=== PATIENT | female | born 2000 | race Caucasian/White ===

== ENCOUNTER 2019-02-05 09:39 | Emergency (ER) | payer OTHER ==
[2019-02-05 09:46] VITALS: RESP 18
--- NOTE | 2019-02-05 10:35 | ED ---
Female Urogenital HPI - General Chief complaint: Vaginal Bleeding Stated complaint: early preg/vag bleeding & cramping Time Seen by Provider: 02/05/19 10:02 Source: patient Mode of arrival: ambulatory Limitations: no limitations - History of Present Illness Initial comments: Patient is a 18-year-old female presenting to the emergency Department with com plaints of abdominal cramping and spotting 2 days. Patient admits to currently being about 5-6 weeks . Patient's last period was the end of November. Patient states she noticed spotting yesterday evening and has continued. Patient also admits to left-sided abdominal cramping that she rates approximately 3/10. This would be patient's first . Patient does not have an [facility] CASE REPAIRER as of yet. Patient denies any nausea, vomiting, fever, chills. Patient has no previous history of abdominal surgeries. Patient takes no medications. Patient has no other complaints at this time. Upon arrival to ER, vital signs are stable, afebrile. - Related Data Allergies Allergy/AdvReac Type Severity Reaction Status Date / Time Penicillins Allergy Unknown Verified 02/05/19 09:42 Childhood Review of Systems ROS Statement: Those systems with pertinent positive or pertinent negative responses have been documented in the HPI. ROS Other: All systems not noted in ROS Statement are negative. Past Medical History Past Medical History: No Reported History History of Any Multi-Drug Resistant Organisms: None Reported Past Surgical History: No Surgical Hx Reported Past Psychological History: No Psychological Hx Reported Smoking Status: Current every day smoker Past Alcohol Use History: None Reported Past Drug Use History: None Reported General Exam - General Exam Comments Initial Comments: GENERAL: Well-appearing, well-nourished and in no acute distress. HEAD: Atraumatic, normocephalic. EYES: Pupils equal round and reactive to light, extraocular movements intact, sclera anicteric, conjunctiva are normal. ENT: TMs normal, nares patent, oropharynx clear without exudates. Moist mucous me mbranes. NECK: Normal range of motion, supple without lymphadenopathy or JVD. LUNGS: Breath sounds clear to auscultation bilaterally and equal. No wheezes rales or rhonchi. HEART: Regular rate and rhythm without murmurs, rubs or gallops. ABDOMEN: Mild lower abdominal, suprapubic tenderness. Left side greater than right. Soft, normoactive bowel sounds. No guarding, no rebound. No masses appreciated. : Deferred, declined. EXTREMITIES: Normal range of motion, no pitting or edema. No clubbing or cyanosis. NEUROLOGICAL: Cranial nerves II through XII grossly intact. Normal speech, normal gait. PSYCH: Normal mood, normal affect. SKIN: Warm, Dry, normal turgor, no rashes or lesions noted. Limitations: no limitations Course Vital Signs 02/05/19 02/05/19 09:42 12:35 Temperature 98 F 98.0 F Pulse Rate 81 79 Respiratory 18 18 Rate Blood Pressure 138/84 132/85 O2 Sat by Pulse 100 99 Oximetry Medical Decision Making - Medical Decision Making Patient is a 18-year-old female presenting with abdominal cramping and vaginal spotting 2 days. Patient is currently about 5 weeks . This patient's first . Patient denies any fever, chills, nausea, vomiting. Patient's vital signs are stable. On exam patient has mild tenderness suprapubic area. CBC, CMP are within normal limits. HCG Quant is 7300. UA reveals no signs of infection. Ultrasound reveals a single IUP. Small implantation bleed is suspected. No other complications seen. Patient is stable for discharge at t his time. Patient is agreement with this plan of care. Referral to [facility]PA[facility] was given to patient. Return parameters were discussed with the patient she verbalized understanding. Case discussed with Dr. Aguirre. - Lab Data Result diagrams: 02/05/19 10:55 02/05/19 10:55 Lab Results 02/05/19 02/05/19 02/05/19 Range/Units 10:55 10:55 10:55 WBC 10.9 (4.0-11.0) k/uL RBC 4.65 (3.80-5.40) m/uL Hgb 13.7 (11.4-16.0) gm/dL Hct 40.1 (34.0-46.0) % MCV 86.4 (80.0-100.0) fL MCH 29.5 (25.0-35.0) pg MCHC 34.2 (31.0-37.0) g/dL RDW 14.3 (11.5-15.5) % Plt Count 262 (150-450) k/uL Neutrophils % 68 % Lymphocytes % 21 % Monocytes % 5 % Eosinophils % 4 % Basophils % 1 % Neutrophils # 7.4 (1.3-7.7) k/uL Lymphocytes # 2.2 (1.0-4.8) k/uL Monocytes # 0.6 (0-1.0) k/uL Eosinophils # 0.4 (0-0.7) k/uL Basophils # 0.1 (0-0.2) k/uL Sodium (137-145) mmol/L Potassium (3.5-5.1) mmol/L Chloride (98-107) mmol/L Carbon Dioxide (22-30) mmol/L Anion Gap mmol/L BUN (7-17) mg/dL Creatinine (0.52-1.04) mg/dL Est GFR (CKD-EPI)AfAm (>60 ml/min/1.73 sqM) Est GFR (CKD-EPI)NonAf (>60 ml/min/1.73 sqM) Glucose (74-99) mg/dL Calcium (8.4-10.2) mg/dL Total Bilirubin (0.2-1.3) mg/dL AST (14-36) U/L ALT (9-52) U/L Alkaline Phosphatase (38-126) U/L Total Protein (6.3-8.2) g/dL Albumin (3.5-5.0) g/dL HCG, Quant mIU/mL Urine Color Yellow Urine Appearance Cloudy H (Clear) Urine pH 6.5 (5.0-8.0) Ur Specific [place] 1.020 (1.001-1.035) Urine Protein Negative (Negative) Urine Glucose (UA) Negative (Negative) Urine Ketones Negative (Negative) Urine Blood Moderate H (Negative) Urine Nitrite Negative (Negative) Urine Bilirubin Negative (Negative) Urine Urobilinogen <2.0 (<2.0) mg/dL Ur Leukocyte Esterase Moderate H (Negative) Urine RBC 1 (0-5) /hpf Urine WBC 3 (0-5) /hpf Ur Squamous Epith Cells 14 H (0-4) /hpf Urine Bacteria Rare H (None) /hpf Urine Mucus Rare H (None) /hpf Urine Sperm Rare (None) /hpf Blood Type A Positive Blood Type Recheck No Previous Record Bld Type Recheck Status [facility] ONLY 02/05/19 Range/Units 10:55 WBC (4.0-11.0) k/uL RBC (3.80-5.40) m/uL Hgb (11.4-16.0) gm/dL Hct (34.0-46.0) % MCV (80.0-100.0) fL MCH (25.0-35.0) pg MCHC (31.0-37.0) g/dL RDW (11.5-15.5) % Plt Count (150-450) k/uL Neutrophils % % Lymphocytes % % Monocytes % % Eosinophils % % Basophils % % Neutrophils # (1.3-7.7) k/uL Lymphocytes # (1.0-4.8) k/uL Monocytes # (0-1.0) k/uL Eosinophils # (0-0.7) k/uL Basophils # (0-0.2) k/uL Sodium 138 (137-145) mmol/L Potassium 4.2 (3.5-5.1) mmol/L Chloride 106 (98-107) mmol/L Carbon Dioxide 25 (22-30) mmol/L Anion Gap 7 mmol/L BUN 11 (7-17) mg/dL Creatinine 0.58 (0.52-1.04) mg/dL Est GFR (CKD-EPI)AfAm >90 (>60 ml/min/1.73 sqM) Est GFR (CKD-EPI)NonAf >90 (>60 ml/min/1.73 sqM) Glucose 90 (74-99) mg/dL Calcium 9.1 (8.4-10.2) mg/dL Total Bilirubin 0.5 (0.2-1.3) mg/dL AST 18 (14-36) U/L ALT 20 (9-52) U/L Alkaline Phosphatase 45 (38-126) U/L Total Protein 6.7 (6.3-8.2) g/dL Albumin 4.0 (3.5-5.0) g/dL HCG, Quant 7367.5 mIU/mL Urine Color Urine Appearance (Clear) Urine pH (5.0-8.0) Ur Specific [place] (1.001-1.035) Urine Protein (Negative) Urine Glucose (UA) (Negative) Urine Ketones (Negative) Urine Blood (Negative) Urine Nitrite (Negative) Urine Bilirubin (Negative) Urine Urobilinogen (<2.0) mg/dL Ur Leukocyte Esterase (Negative) Urine RBC (0-5) /hpf Urine WBC (0-5) /hpf Ur Squamous Epith Cells (0-4) /hpf Urine Bacteria (None) /hpf Urine Mucus (None) /hpf Urine Sperm (None) /hpf Blood Type Blood Type Recheck Bld Type Recheck Status Disposition Clinical Impression: Vaginal bleeding, and not yet delivered in first trimester Disposition: HOME SELF-CARE Condition: Stable Instructions (If sedation given, give patient instructions): Non-Threatening First Trimester Vaginal Bleed (ED) Additional Instructions: Please return to the Emergency Department if symptoms worsen or any other concerns. Follow-up with [facility]PAIR[facility]. Is patient prescribed a controlled substance at d/c from ED?: No Referrals: Sachin Morel MD [Primary Care Provider] - 1-2 days Mely López DO [Doctor of Osteopathic Medicine] - 1-2 days
[2019-02-05 11:15] LABS: Basophils # (A) 0.1 k/uL (0-0.2); Basophils % (A) 1 %; Eosinophils # (A) 0.4 k/uL (0-0.7); Eosinophils % (A) 4 %; HCT 40.1 % (34.0-46.0); HGB 13.7 gm/dL (11.4-16.0); Lymphocytes # (A) 2.2 k/uL (1.0-4.8); Lymphocytes % (A) 21 %; MCH 29.5 pg (25.0-35.0); MCHC 34.2 g/dL (31.0-37.0); MCV 86.4 fL (80.0-100.0); Mean Platelet Volume 7.3; Monocytes # (A) 0.6 k/uL (0-1.0); Monocytes % (A) 5 %; Neutrophils # (A) 7.4 k/uL (1.3-7.7); Neutrophils % (A) 68 %; Platelet Count 262 k/uL (150-450); RBC 4.65 m/uL (3.80-5.40); RDW 14.3 % (11.5-15.5); WBC 10.9 k/uL (4.0-11.0)
[2019-02-05 11:20] LABS: Appearance,Urine Cloudy (Clear); Bacteria,Urine Rare /hpf; Bilirubin,Urine Negative (Negative); Blood,Urine Moderate (Negative); Color,Urine Yellow; Glucose,Urine (UA) Negative (Negative); Ketones,Urine Negative (Negative); Leukocyte Esterase,Urine Moderate (Negative); Mucus,Urine Rare /hpf; Nitrite,Urine Negative (Negative); PH, Urine 6.5 (5.0-8.0); Protein,Urine Negative (Negative); RBC,Urine 1 /hpf (0-5); Sperm,Urine Rare /hpf; Squamous Epithelial Cell,Urine 14 /hpf (0-4); Urobilinogen,Urine <2.0 mg/dL (<2.0)
[2019-02-05 11:28] LABS: ALT 20 U/L (9-52); AST 18 U/L (14-36); African American GFR (CKD) >90 (>60 ml/min/1.73 sqM); Alkaline Phosphatase 45 U/L (38-126); Anion Gap 7 mmol/L; Blood Urea Nitrogen 11 mg/dL (7-17); Calcium 9.1 mg/dL (8.4-10.2); Carbon Dioxide 25 mmol/L (22-30); Chloride 106 mmol/L (98-107); Glucose 90 mg/dL (74-99); Potassium 4.2 mmol/L (3.5-5.1); Sodium 138 mmol/L (137-145); Total Bilirubin 0.5 mg/dL (0.2-1.3); Total Protein 6.7 g/dL (6.3-8.2)
[2019-02-05 11:42] LABS: HCG,Quantitative Serum 7367.5 mIU/mL
--- NOTE | 2019-02-05 12:20 | US ---
EXAMINATION TYPE: Transabdominal DATE OF EXAM: 02/05/2019 11:44 AM COMPARISON: NONE CLINICAL HISTORY: Pain, bleeding. Spotting EXAM PERFORMED: Transvaginal (TV) and Transabdominal (TA) EXAM MEASUREMENTS: GESTATIONAL AGE / DATING Physician Established: Not yet established ( Dates by LMP: (6 weeks/0 days) EDC: 10/01/2019 Dates by First Scan: No previous this is first scan ) Dates by Current Scan for: (5 weeks/6 days) EDC: 10/02/2019 MATERNAL ANATOMY Uterus: 7.5 x 5.1 x 5.4 cm Right Ovary: 2.6 x 1.7 x 1.7 cm Left Ovary: Obscured by bowel gas. Post CDS / Adnexa: wnl Presence of free fluid: no Presence of corpus luteal cyst: no Presence of subchorionic bleed: Very small implantation bleed is suspected as slight hypoechogenicity surrounds less than 25% of the diameter of the gestational sac. GESTATION / SURVEY CRL: 0.28 cm (5 weeks/6 days) MSD: ( weeks/ days) Yolk Sac (normal less than 6mm): 0.13cm Heart Rate: 151 bpm Rhythm: Normal IUP: Live IUP Beta HcG (if available): Not available at this time IMPRESSION: Single live intrauterine with a sonographic age of 5 weeks and 6 days and estimated date of delivery of 10/02/2019, concordant with menstrual age. Small implantation bleed is suspected.
[2019-02-05 12:35] VITALS: BP 132/85; PULSE 79; TEMP 98
== END 2019-02-05 12:35 | disposition home or self-care (01) ==
LOC: EC 09:39
DX: O20.9 Hemorrhage in early pregnancy, unspecified (principal); O99.331 Smoking (tobacco) complicating pregnancy, first trimester; F17.200 Nicotine dependence, unspecified, uncomplicated; Z88.0 Allergy status to penicillin; Z3A.01 Less than 8 weeks gestation of pregnancy
CPT/HCPCS: 36415; 76801; 76817; 80053; 81001; 84702; 85025; 86900; 86901; 99284

== ENCOUNTER → 2021-08-16 | Outpatient (CLI) | payer OTHER ==
--- NOTE | 2021-08-16 12:05 | US ---
EXAMINATION TYPE: US OB >= 14 wk fetus DATE OF EXAM: 08/16/2021 COMPARISON: None CLINICAL HISTORY: Z36.87 uncertain l and p TECHNIQUE: Transabdominal (TA) GESTATIONAL AGE / DATING Physician Established: Not yet established Dates by LMP: LMP unknown Dates by First Scan: No previous this is first scan Dates by Current Scan: (16 weeks/4 days) EDC: 01-27-22 SURVEY IUP: Single PLACENTA: Posterior PREVIA: Low Lying VLAD: 10.4 cm CERVICAL LENGTH (transabdominal: norm > 3.0cm): 3.2 cm BIOMETRY PRESENTATION: LIE: BPD: 3.4 cm 16 weeks / 4 days HC: 13.1 cm 16 weeks / 5 days AC: 10.2 cm 16 weeks / 1 days FL: 2.1 cm 16 weeks / 3 days ESTIMATED WEIGHT IN GRAMS: 152 grams ESTIMATED WEIGHT IN LBS/OZ: 0 lbs. 5 oz. WEIGHT PERCENTAGE BASED ON ESTABLISHED DATES: 1st ultrasound, unknown LMP HC/AC: 1.3 FL/AC: 20.9 HEART RATE: 140 bpm IMPRESSION: Single viable intrauterine .
== END | disposition home or self-care (01) ==
LOC: RADUSWWP 10:48
PROVIDERS: ATTEND Obstetrics & Gynecology
DX: Z36.87 Encounter for antenatal screening for uncertain dates (principal); Z3A.16 16 weeks gestation of pregnancy
CPT/HCPCS: 76805

== ENCOUNTER 2022-01-29 20:22 | Inpatient (IN) | payer OTHER ==
[2022-01-29] MEDS ORDERED: METHYLERGONOVINE 0.2 MG/ML 1 ML AMP IM PRN (21:18)
[2022-01-29] MEDS ORDERED: OXYTOCIN 10 UNIT/ML 1 ML VIAL IM PRN (21:18)
[2022-01-29] MEDS ORDERED: TERBUTALINE 1 MG/ML VIAL SQ PRN (21:18)
[2022-01-29] MEDS ORDERED: LIDOCAINE 0.5% (PF) 5 MG/ML (50 ML SDV) SQ PRN (21:18)
[2022-01-29] MEDS ORDERED: CARBOPROST TROMETHAMINE 250 MCG/ML 1 ML AMP IM PRN (21:18)
[2022-01-29] MEDS ORDERED: CLINDAMYCIN 900 MG in DEXTROSE 5% IN WATER 50 ML IVPB STA ×2 (21:23)
[2022-01-29] MEDS ORDERED: OXYTOCIN 30 UNITS/500 ML NS 30 UNIT in SALINE 1 500ML.BAG IV SCH (21:30)
[2022-01-29] MEDS: LACTATED RINGERS 1,000 ML IV SCH (21:31)
[2022-01-29 21:35] LABS: Basophils % (A) 0 %; Eosinophils # (A) 0.2 k/uL (0-0.7); Eosinophils % (A) 1 %; HGB 13.3 gm/dL (11.4-16.0); Lymphocytes # (A) 2.4 k/uL (1.0-4.8); Lymphocytes % (A) 16 %; MCH 28.6 pg (25.0-35.0); MCHC 33.2 g/dL (31.0-37.0); MCV 86.2 fL (80.0-100.0); Mean Platelet Volume 8.6; Monocytes # (A) 0.8 k/uL (0-1.0); Monocytes % (A) 6 %; Neutrophils # (A) 11.1 k/uL (1.3-7.7); Neutrophils % (A) 76 %; Platelet Count 258 k/uL (150-450); RBC 4.64 m/uL (3.80-5.40); RDW 13.2 % (11.5-15.5); WBC 14.5 k/uL (3.8-10.6)
[2022-01-29] MEDS: BUTORPHANOL 1 MG/ML 1 ML VIAL IV PRN (23:31)
[2022-01-30] MEDS: BUTORPHANOL 1 MG/ML 1 ML VIAL IV PRN (03:30)
[2022-01-30] MEDS ORDERED: CLINDAMYCIN 900 MG in DEXTROSE 5% IN WATER 50 ML IVPB SCH ×2 (05:30)
[2022-01-30] MEDS ORDERED: BUPIVACAINE (PF) 0.25% 30 ML VIAL ONE (06:18)
[2022-01-30] MEDS ORDERED: SODIUM CHLORIDE 0.9% 100 ML BAG ONE (06:18)
[2022-01-30] MEDS ORDERED: fentaNYL (PF) 50 MCG/ML 5 ML AMP ONE (06:18)
[2022-01-30] MEDS: LACTATED RINGERS 1,000 ML IV SCH ×2 (06:44→18:13)
--- NOTE | 2022-01-30 07:56 | P.HPOB ---
History of Present Illness H&P Date: 01/30/22 Chief Complaint: Spontaneous amniorrhexis last night, early labor This is a 21-year-old female 2 para 0010 EDC 01/28/2022 at 40 and one sevenths weeks' gestation who presented last night with spontaneous amniorrhexis at home, clear fluid. She labored through the night, epidural was placed this morning. Oxytocin is currently instituted and being titrated. Past medical history is significant for morbid maternal obesity. Past surgical history wisdom teeth extracted. Current medications vitamins daily, baby aspirin daily. ALLERGIES include penicillin to which she reports a rash and hives. Family history significant for hypertension, breast cancer, brain tumor, cardiac defect. Social history patient is single, patient is employed, she denies alcohol tobacco or drug use. history significant for blood type A positive, rubella status immune. VDRL testing, urine culture, hepatitis B surface antigen, HIV testing, gonorrhea and chlamydia cultures all negative. One-hour Glucola 111. Group B strep cultures positive. On exam patient is 5 foot 6 inches, 311 pounds, blood pressure 138/85. Vital signs are otherwise stable and she is afebrile. The general physical exam is within normal limits. The cervix is 3-4 cm dilated, 60-70% effaced, soft, posterior, vertex. Artificial amniorrhexis has been confirmed on admission. heart rate is consistent with reactive NST. Impression: 40 and one sevenths week intrauterine , active spontaneous labor. Morbid maternal obesity. Positive group B strep cultures. Plan: Rocephin has been given due to penicillin ALLERGY and clindamycin resistance of the organism. Oxytocin has been started and epidural is in place, patient is comfortable. Continue close maternal and surveillance. Anticipate normal spontaneous vaginal delivery. Review of Systems Constitutional: Reports as per HPI Past Medical History Past Medical History: No Reported History History of Any Multi-Drug Resistant Organisms: None Reported Past Surgical History: No Surgical Hx Reported Past Psychological History: No Psychological Hx Reported Smoking Status: Never smoker Past Alcohol Use History: None Reported Past Drug Use History: None Reported Medications and Allergies Home Medications Medication Instructions Recorded Confirmed Type Aspirin [Adult Low Dose Aspirin EC] 1 tab PO DAILY 01/29/22 01/29/22 History Vit No.179/Iron/Folic 1 tab PO DAILY 01/29/22 01/29/22 History [ Tablet] Allergies Allergy/AdvReac Type Severity Reaction Status Date / Time Penicillins Allergy Unknown Verified 02/05/19 09:42 Childhood Exam Vital Signs Temp Pulse Resp BP Pulse Ox 01/29/22 21:30 97.8 F 80 17 131/91 01/29/22 20:40 97.7 F 103 H 17 138/85 95 Intake and Output 01/29/22 01/30/22 01/30/22 22:59 06:59 14:59 Other: # Voids 1 1 Weight 141.067 kg See dictation under HPI please Results Result Diagrams: 01/29/22 21:19 Abnormal Lab Results - Last 24 Hours (Table) 01/29/22 Range/Units 21:19 WBC 14.5 H (3.8-10.6) k/uL Neutrophils # 11.1 H (1.3-7.7) k/uL Assessment and Plan Assessment: 40 and one sevenths weeks intrauterine , here in early active labor. Rupee strep cultures positive, antibiotics. Epidural placed. Patient comfortable. Oxytocin titrating. Plan: Continue oxytocin per protocol. Continue close maternal and surveillance. Optimistic clean anticipating normal spontaneous vaginal delivery. Time with Patient: Less than 30
[2022-01-30] MEDS ORDERED: HYDROCORTISONE 2.5% RECTAL CREAM 30 GM TUBE RECTAL PRN (18:05)
[2022-01-30] MEDS ORDERED: ZOLPIDEM 5 MG TAB PO PRN (18:05)
[2022-01-30] MEDS ORDERED: BENZOCAINE/MENTHOL SPRAY 1 GM/SPRAY AEROSOL TOPICAL PRN (18:05)
[2022-01-30] MEDS ORDERED: LANOLIN CREAM 5 GM TUBE TOPICAL PRN (18:05)
[2022-01-30] MEDS ORDERED: diphenhydrAMINE ELIXIR 25 MG/10 ML CUP PO PRN (18:05)
[2022-01-30] MEDS ORDERED: ACETAMINOPHEN TAB 325 MG TAB PO PRN (18:05)
[2022-01-30] MEDS ORDERED: SIMETHICONE 80 MG CHEWABLE PO PRN (18:05)
[2022-01-30] MEDS ORDERED: diphenhydrAMINE 50 MG/ML 1 ML VIAL IVP PRN ×2 (18:05)
[2022-01-30] MEDS ORDERED: diphenhydrAMINE 50 MG CAP PO PRN (18:05)
[2022-01-30] MEDS ORDERED: diphenhydrAMINE 25 MG CAP PO PRN (18:05)
--- NOTE | 2022-01-30 18:05 | P.PROBDLV ---
Vaginal Delivery Note - . Vaginal Delivery Note: This is a 21-year-old 2 para 0010 now at 40-2/7 weeks' gestation who presented last night with spontaneous amniorrhexis, clear fluid. is remarkable for blood type A+, group B strep cultures positive, rubella status immune. Please see my dictated history and physical for details. Oxytocin was started at 0500 hrs. Active labor commenced. Epidural was placed per her request after several doses of Stadol were administered. In addition, Rocephin was given for group B strep status. Patient progressed through the first stage of labor and was judged to be completely dilated at 1710 hrs. Perineal body was prepped and draped in usual sterile fashion. With a very exaggerated Caren maneuver the 's head delivered in the occiput anterior position and restituted accordingly. There was a tight nuchal cord 1. The left or anterior shoulder was delivered from underneath the pubic symphysis at which time the somewhat explosively delivered. The umbilical cord was noted to be sheared approximately 3 cm from the end. Her abdominal wall. Cord clamp was placed. weighed 8 pounds 7.8 ounces or 3850 g. Placenta delivered spontaneously, it was inspected and noted to be intact with trivascular cord at 1722 hrs. Careful inspection then of the cervix, vagina, perineum, periurethral, and. Rectal areas revealed a small first-degree periclitoral laceration as well as a first-degree perineal laceration. Both were repaired in the usual fashion using 3-0 repeat with excellent reapproximation. Total estimated blood loss 300 mL's. Methergine was given as the uterus was somewhat boggy, with immediate results. Uterus is firm and at the umbilicus upon completion of delivery. Infant's scores were 8 and 9 at one and 5 minutes respectively. He was briefly taken to the nursery for observation. Patient is requesting circumcision for her son.
[2022-01-30 20:12] VITALS: RESP 16
[2022-01-31] MEDS: IBUPROFEN 600 MG TAB PO SCH ×4 (04:08→14:41)
[2022-01-31] MEDS: SENNOSIDES-DOCUSATE SODIUM 1 EACH TAB PO SCH ×2 (04:09→08:50)
[2022-01-31] MEDS: LACTATED RINGERS 1,000 ML IV SCH ×2 (04:09→05:36)
--- NOTE | 2022-01-31 08:34 | P.DS ---
Providers Date of admission: 01/29/22 20:51 Expected date of discharge: 01/31/22 Attending physician: Raven Key Primary care physician: Stated None Hospital Course: This is a 21-year-old female 2 para 0010 EDC 01/28/2022 at 40-2/7 weeks' gestation who presented with spontaneous amniorrhexis at home, clear fluid. is remarkable for blood type A positive, rubella status immune. [place] strep cultures positive. Morbid maternal obesity. Please see my dictated history and physical for details. The following morning oxytocin was started. Please note that antibiotics were given. Patient had a long course of labor but ultimately delivered a liveborn male infant with scores of 8 and 9 at one and 5 minutes respectively. There was a small first-degree perineal laceration as well as a periclitoral laceration, easily repaired. Estimated blood loss 300 mL's. Infant weighed 8 pounds 7.8 ounces or 3850 g. Please see my dictated delivery note for details. The spine the patient is doing well. She is voiding, inability, passing flatus without difficulty. Vital signs are stable and she is afebrile. Fundus is firm and in the midline, symmetric and 18 week size. Extremities are negative for edema. infant is doing well, circumcision has been performed. Patient is judged to be in very good condition for discharge home. She will follow-up with me in the office in 6 weeks. I have reminded her no intercourse, tampons or douching. She'll use [id number] Advil or Aleve, or Motrin as needed for pain. She will call with any fevers shakes or chills, foul smelling or copious lochia, with the passage of large blood clots, with any pain not alleviated by [id number] products, or indeed with any concerns. We have briefly contemplated options for contraception and we will discuss this further in the office. Assessment: Doing well first day Patient Condition at Discharge: Good Plan - Discharge Summary New Discharge Prescriptions: No Action Vit No.179/Iron/Folic [ Tablet] 1 tab PO DAILY Aspirin [Adult Low Dose Aspirin EC] 1 tab PO DAILY Discharge Medication List Aspirin [Adult Low Dose Aspirin EC] 1 tab PO DAILY 01/29/22 [History] Vit No.179/Iron/Folic [ Tablet] 1 tab PO DAILY 01/29/22 [History] Follow up Appointment(s)/Referral(s): Raven Key MD [STAFF PHYSICIAN] - 6 Weeks Discharge Disposition: HOME SELF-CARE
[2022-01-31 17:52] VITALS: BP 135/88; PULSE 101; TEMP 96.7
== END 2022-01-31 18:00 | disposition home or self-care (01) | DRG 807 ==
LOC: FBPOP 20:22 → 4FBP 20:51
PROVIDERS: ADMIT Obstetrics & Gynecology; ATTEND Obstetrics & Gynecology
PROC: 10E0XZZ Delivery of Products of Conception, External Approach (ICD-10-PCS; principal; 2022-01-30)
PROC: 0HQ9XZZ Repair Perineum Skin, External Approach (ICD-10-PCS; 2022-01-30)
PROC: 10907ZC Drainage of Amniotic Fluid, Therapeutic from Products of Conception, Via Natural or Artificial Opening (ICD-10-PCS; 2022-01-30)
PROC: 4A0HXCZ Measurement of Products of Conception, Cardiac Rate, External Approach (ICD-10-PCS; 2022-01-30)
PROC: 0UQMXZZ Repair Vulva, External Approach (ICD-10-PCS; 2022-01-30)
PROC: 3E033VJ Introduction of Other Hormone into Peripheral Vein, Percutaneous Approach (ICD-10-PCS; 2022-01-30)
DX: O99.824 Streptococcus B carrier state complicating childbirth (principal); Z37.0 Single live birth; O69.1XX0 Labor and delivery complicated by cord around neck, with compression, not applicable or unspecified; O70.0 First degree perineal laceration during delivery; O71.82 Other specified trauma to perineum and vulva; E66.01 Morbid (severe) obesity due to excess calories; O48.0 Post-term pregnancy; O99.214 Obesity complicating childbirth; Z88.0 Allergy status to penicillin; Z3A.40 40 weeks gestation of pregnancy; Z79.82 Long term (current) use of aspirin
CPT/HCPCS: 85025; 86850; 86900; 86901; 99213

== ENCOUNTER 2022-11-17 15:57 | Emergency (ER) | payer OTHER ==
[2022-11-17 16:11] VITALS: BP 141/69; PULSE 88; RESP 18; TEMP 98
[2022-11-17] MEDS ORDERED: LIDOCAINE 2%-EPI 1:100,000 20 ML VIAL SQ ONE (16:20)
[2022-11-17] MEDS ORDERED: BACITRACIN OINT 1 EACH PACKET TOPICAL ONE (16:30)
[2022-11-17] MEDS ORDERED: CEPHALEXIN 500 MG CAP PO STA (16:31)
[2022-11-17] MEDS ORDERED: CEPHALEXIN 500MG STARTER PACK 4 CAP BTL PO STA (16:31)
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
== END 2022-11-17 16:47 | disposition home or self-care (01) ==
LOC: EC 15:57
DX: S71.111A Laceration without foreign body, right thigh, initial encounter (principal); Z88.0 Allergy status to penicillin; V86.96XA Unspecified occupant of dirt bike or motor/cross bike injured in nontraffic accident, initial encounter
CPT/HCPCS: 12004; 99282

== ENCOUNTER 2023-01-04 10:37 | Emergency (ER) | payer OTHER ==
[2023-01-04 10:46] VITALS: BP 98/67; PULSE 82; RESP 16; TEMP 98.9
--- NOTE | 2023-01-04 11:17 | ED ---
General Adult HPI - General Chief complaint: Recheck/Abnormal Lab/Rx Stated complaint: Needs drug test Time Seen by Provider: 01/04/23 11:11 Source: patient, RN notes reviewed Mode of arrival: ambulatory Limitations: no limitations - History of Present Illness Initial comments: 22-year-old female presents emergency Department for drug screen. She denies any physical issues at this time. She would like to be drug tested today for accusations of drug abuse. She reports no significant past medical history. - Related Data Home Medications Medication Instructions Recorded Confirmed Aspirin [Adult Low Dose Aspirin EC] 1 tab PO DAILY 01/29/22 01/29/22 Vit No.179/Iron/Folic 1 tab PO DAILY 01/29/22 01/29/22 [ Tablet] Previous Rx's Medication Instructions Recorded Cephalexin [Keflex] 500 mg PO Q8HR 5 Days #14 cap 11/17/22 Allergies Allergy/AdvReac Type Severity Reaction Status Date / Time Penicillins Allergy Unknown Verified 01/04/23 10:46 Childhood Review of Systems ROS Statement: Those systems with pertinent positive or pertinent negative responses have been documented in the HPI. ROS Other: All systems not noted in ROS Statement are negative. Past Medical History Past Medical History: No Reported History History of Any Multi-Drug Resistant Organisms: None Reported Past Surgical History: No Surgical Hx Reported Past Psychological History: No Psychological Hx Reported Smoking Status: Never smoker Past Alcohol Use History: None Reported Past Drug Use History: None Reported General Exam Limitations: no limitations General appearance: alert, in no apparent distress Head exam: Present: atraumatic, normocephalic, normal inspection Eye exam: Present: normal appearance. Absent: scleral icterus, conjunctival injection, periorbital swelling ENT exam: Present: normal exam, mucous membranes moist Neck exam: Present: normal inspection. Absent: tenderness, meningismus, lymphadenopathy Respiratory exam: Present: normal lung sounds bilaterally. Absent: respiratory distress, wheezes, rales, rhonchi, stridor Cardiovascular Exam: Present: regular rate, normal rhythm, normal heart sounds. Absent: systolic murmur, diastolic murmur, rubs, gallop, clicks Extremities exam: Present: normal inspection, full ROM, normal capillary refill. Absent: tenderness, pedal edema, joint swelling, calf tenderness Back exam: Present: normal inspection Neurological exam: Present: alert, oriented X3 Psychiatric exam: Present: normal affect, normal mood Skin exam: Present: warm, dry, intact, normal color. Absent: rash Course Vital Signs 01/04/23 10:43 Temperature 98.9 F Pulse Rate 82 Respiratory 16 Rate Blood Pressure 98/67 O2 Sat by Pulse 99 Oximetry Medical Decision Making - Medical Decision Making Was pt. sent in by a medical professional or institution (TATE Gonzalez, GRAPHIC ARTIST, urgent care, hospital, or residential...) When possible be specific @ -No Did you speak to anyone other than the patient for history (EMS, parent, family, police, friend...)? What history was obtained from this source @ -No Did you review nursing and triage notes (agree or disagree)? Why? @ -I reviewed and agree with nursing and triage notes Were old charts reviewed (outside hosp., previous admission, EMS record, old EKG, old radiological studies, urgent care reports/EKG's, residential records)? Report findings @ -No old charts were reviewed Differential Diagnosis (chest pain, altered mental status, abdominal pain women, abdominal pain men, vaginal bleeding, weakness, fever, dyspnea, syncope, headache, dizziness, GI bleed, back pain, seizure, CVA, palpatations, mental health, musculoskeletal)? @ -not applicable EKG interpreted by me (3pts min.). @ -none X-rays interpreted by me (1pt min.). @ -None done CT interpreted by me (1pt min.). @ -None done U/S interpreted by me (1pt. min.). @ -None done What testing was considered but not performed or refused? (CT, X-rays, U/S, labs)? Why? @ -None What meds were considered but not given or refused? Why? @ -None Did you discuss the management of the patient with other professionals (professionals i.e. TATE Gonzalez, GRAPHIC ARTIST, lab, RT, psych nurse, geriatric social worker, immigration investigator, teacher, bomb squad officer, behavioral health case manager)? Give summary @ -No Was smoking cessation discussed for >3mins.? @ -No Was critical care preformed (if so, how long)? @ -No Were there social determinants of health that impacted care today? How? (Homelessness, low income, unemployed, alcoholism, drug addiction, transportation, low edu. Level, literacy, decrease access to med. care, nursing home, rehab)? @ -No Was there de-escalation of care discussed even if they declined (Discuss DNR or withdrawal of care, Hospice)? DNR status @ -No What co-morbidities impacted this encounter? (DM, HTN, Smoking, COPD, CAD, Cancer, CVA, ARF, Chemo, Hep., AIDS, mental health diagnosis, sleep apnea, morbid obesity)? @ -None Was patient admitted / discharged? Hospital course, mention meds given and route, prescriptions, significant lab abnormalities, going to OR and other pertinent info. @ -Discharge. Patient presented to emergency department for drug screening. Urine drug screen performed and patient advised on results. Patient discharged in stable condition. Undiagnosed new problem with uncertain prognosis? @ -No Drug Therapy requiring intensive monitoring for toxicity (Heparin, Nitro, Insulin, Cardizem)? @ -No Were any procedures done? @ -No Diagnosis/symptom? @ -Encounter for drug screening Acute, or Chronic, or Acute on Chronic? @ -acute Uncomplicated (without systemic symptoms) or Complicated (systemic symptoms)? @ -uncomplicated Side effects of treatment? @ -No Exacerbation, Progression, or Severe Exacerbation? @ -No Poses a threat to life or bodily function? How? (Chest pain, [place], [place], pneumonia, PE, COPD, DKA, ARF, appy, cholecystitis, CVA, Diverticulitis, Homicidal, Suicidal, threat to staff... and all critical care pts) @ -No - Lab Data Lab Results 01/04/23 Range/Units 10:48 Urine Opiates Screen Not Detected (NotDetected) Ur Oxycodone Screen Not Detected (NotDetected) Urine Methadone Screen Not Detected (NotDetected) Ur Propoxyphene Screen Not Detected (NotDetected) Ur Barbiturates Screen Not Detected (NotDetected) U Tricyclic Antidepress Not Detected (NotDetected) Ur Phencyclidine Scrn Not Detected (NotDetected) Ur Amphetamines Screen Not Detected (NotDetected) U Methamphetamines Scrn Not Detected (NotDetected) U Benzodiazepines Scrn Not Detected (NotDetected) Urine Cocaine Screen Not Detected (NotDetected) U Marijuana (THC) Screen Not Detected (NotDetected) Disposition Clinical Impression: Encounter for drug screening Disposition: HOME SELF-CARE Condition: Stable Is patient prescribed a controlled substance at d/c from ED?: No Referrals: Amy Nguyễn NPC [REFERRING] - 1-2 days Time of Disposition: 11:42
[2023-01-04 11:38] LABS: Amphetamine Screen,Urine Not Detected (NotDetected); Barbiturate Screen,Urine Not Detected (NotDetected); Benzodiazepines Screen,Urine Not Detected (NotDetected); Cocaine Screen,Urine Not Detected (NotDetected); Methadone Screen, Urine Not Detected (NotDetected); Opiate Screen,Urine Not Detected (NotDetected); Oxycodone Screen, Urine Not Detected (NotDetected); Phencyclidine Screen,Urine Not Detected (NotDetected); Tricyclic Antidepressant,Urine Not Detected (NotDetected); Urn Cannabinoid Scrn Not Detected (NotDetected)
== END 2023-01-04 11:51 | disposition home or self-care (01) ==
LOC: EC 10:37
DX: Z02.83 Encounter for blood-alcohol and blood-drug test (principal); Z88.0 Allergy status to penicillin; Z79.82 Long term (current) use of aspirin
CPT/HCPCS: 80306; 99283

== ENCOUNTER 2023-01-10 17:48 | Emergency (ER) | payer OTHER ==
[2023-01-10 18:05] VITALS: TEMP 98.1
--- NOTE | 2023-01-10 19:22 | ED ---
General Adult HPI - General Chief complaint: Recheck/Abnormal Lab/Rx Stated complaint: Drug Test Time Seen by Provider: 01/10/23 18:44 Source: patient, RN notes reviewed Mode of arrival: ambulatory Limitations: no limitations - History of Present Illness Initial comments: 22-year-old female presents to the emergency department for drug screening. 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 She was here recently the same thing. She is not having any symptoms at this time. - Related Data Home Medications Medication Instructions Recorded Confirmed Aspirin [Adult Low Dose Aspirin EC] 1 tab PO DAILY 01/29/22 01/29/22 Vit No.179/Iron/Folic 1 tab PO DAILY 01/29/22 01/29/22 [ Tablet] Previous Rx's Medication Instructions Recorded Cephalexin [Keflex] 500 mg PO Q8HR 5 Days #14 cap 11/17/22 Allergies Allergy/AdvReac Type Severity Reaction Status Date / Time Penicillins Allergy Unknown Verified 01/10/23 18:05 Childhood Review of Systems ROS Statement: Those systems with pertinent positive or pertinent negative responses have been documented in the HPI. ROS Other: All systems not noted in ROS Statement are negative. Past Medical History Past Medical History: No Reported History History of Any Multi-Drug Resistant Organisms: None Reported Past Surgical History: No Surgical Hx Reported Past Psychological History: No Psychological Hx Reported Smoking Status: Never smoker Past Alcohol Use History: None Reported Past Drug Use History: None Reported General Exam Limitations: no limitations General appearance: alert, in no apparent distress Head exam: Present: atraumatic, normocephalic, normal inspection Eye exam: Present: normal appearance, PERRL, EOMI. Absent: scleral icterus, conjunctival injection, periorbital swelling ENT exam: Present: normal exam, mucous membranes moist Neck exam: Present: normal inspection. Absent: tenderness, meningismus, lymphadenopathy Respiratory exam: Present: normal lung sounds bilaterally. Absent: respiratory distress, wheezes, rales, rhonchi, stridor Cardiovascular Exam: Present: regular rate, normal rhythm, normal heart sounds. Absent: systolic murmur, diastolic murmur, rubs, gallop, clicks GI/Abdominal exam: Present: soft, normal bowel sounds. Absent: distended, tenderness, guarding, rebound, rigid Extremities exam: Present: normal inspection, full ROM, normal capillary refill. Absent: tenderness, pedal edema, joint swelling, calf tenderness Back exam: Present: normal inspection Neurological exam: Present: alert, oriented X3 Psychiatric exam: Present: normal affect, normal mood Skin exam: Present: warm, dry, intact, normal color. Absent: rash Course Vital Signs 01/10/23 01/10/23 18:03 19:55 Temperature 98.1 F Pulse Rate 93 92 Respiratory 20 18 Rate Blood Pressure 135/86 124/88 O2 Sat by Pulse 99 98 Oximetry Medical Decision Making - Medical Decision Making Was pt. sent in by a medical professional or institution (, PA, CONTENT PUBLISHER, urgent care, hospital, or [facility]...) When possible be specific @ -No Did you speak to anyone other than the patient for history (EMS, parent, family, police, friend...)? What history was obtained from this source @ -No Did you review nursing and triage notes (agree or disagree)? Why? @ -I reviewed and agree with nursing and triage notes Were old charts reviewed (outside hosp., previous admission, EMS record, old EKG, old radiological studies, urgent care reports/EKG's, [facility] records)? Report findings @ -No old charts were reviewed Differential Diagnosis (chest pain, altered mental status, abdominal pain women, abdominal pain men, vaginal bleeding, weakness, fever, dyspnea, syncope, headache, dizziness, GI bleed, back pain, seizure, CVA, palpatations, mental health, musculoskeletal)? @ -not applicable EKG interpreted by me (3pts min.). @ -None X-rays interpreted by me (1pt min.). @ -None done CT interpreted by me (1pt min.). @ -None done U/S interpreted by me (1pt. min.). @ -None done What testing was considered but not performed or refused? (CT, X-rays, U/S, labs)? Why? @ -None What meds were considered but not given or refused? Why? @ -None Did you discuss the management of the patient with other professionals (professionals i.e. , TATE, CONTENT PUBLISHER, lab, RT, psych nurse, case management social worker, leather cleaner, teacher, chief technology officer, pillowcase maker)? Give summary @ -No Was smoking cessation discussed for >3mins.? @ -No Was critical care preformed (if so, how long)? @ -No Were there social determinants of health that impacted care today? How? (Homelessness, low income, unemployed, alcoholism, drug addiction, transportation, low edu. Level, literacy, decrease access to med. care, penitentiary, rehab)? @ -No Was there de-escalation of care discussed even if they declined (Discuss DNR or withdrawal of care, Hospice)? DNR status @ -No What co-morbidities impacted this encounter? (DM, HTN, Smoking, COPD, CAD, [place], CVA, ARF, Chemo, Hep., AIDS, mental health diagnosis, sleep apnea, morbid obesity)? @ -None Was patient admitted / discharged? Hospital course, mention meds given and route, prescriptions, significant lab abnormalities, going to OR and other pertinent info. @ -Discharged. Patient presented emergency department for drug screen. This was negative. Patient was provided with the results. Patient stable at time of discharge. Case discussed my attending, Dr. Mendes Undiagnosed new problem with uncertain prognosis? @ -No Drug Therapy requiring intensive monitoring for toxicity (Heparin, Nitro, Insulin, Cardizem)? @ -No Were any procedures done? @ -No Diagnosis/symptom? @ -Encounter for drug screen Acute, or Chronic, or Acute on Chronic? @ -Acute Uncomplicated (without systemic symptoms) or Complicated (systemic symptoms)? @ -Uncomplicated Side effects of treatment? @ -No Exacerbation, Progression, or Severe Exacerbation? @ -No Poses a threat to life or bodily function? How? (Chest pain, [place], [place], pneumonia, PE, COPD, DKA, ARF, appy, cholecystitis, CVA, Diverticulitis, Homicidal, Suicidal, threat to staff... and all critical care pts) @ -No - Lab Data Lab Results 01/10/23 01/10/23 Range/Units 19:14 19:14 Urine HCG, Qual Not Detected (Not Detectd) Urine Opiates Screen Not Detected (NotDetected) Ur Oxycodone Screen Not Detected (NotDetected) Urine Methadone Screen Not Detected (NotDetected) Ur Propoxyphene Screen Not Detected (NotDetected) Ur Barbiturates Screen Not Detected (NotDetected) U Tricyclic Antidepress Not Detected (NotDetected) Ur Phencyclidine Scrn Not Detected (NotDetected) Ur Amphetamines Screen Not Detected (NotDetected) U Methamphetamines Scrn Not Detected (NotDetected) U Benzodiazepines Scrn Not Detected (NotDetected) Urine Cocaine Screen Not Detected (NotDetected) U Marijuana (THC) Screen Not Detected (NotDetected) Disposition Clinical Impression: Encounter for drug screening Disposition: HOME SELF-CARE Condition: Stable Is patient prescribed a controlled substance at d/c from ED?: No Referrals: Sachin Morel MD [Primary Care Provider] - 1-2 days Time of Disposition: 19:21
[2023-01-10 19:47] LABS: Amphetamine Screen,Urine Not Detected (NotDetected); Barbiturate Screen,Urine Not Detected (NotDetected); Benzodiazepines Screen,Urine Not Detected (NotDetected); Cocaine Screen,Urine Not Detected (NotDetected); Methadone Screen, Urine Not Detected (NotDetected); Opiate Screen,Urine Not Detected (NotDetected); Oxycodone Screen, Urine Not Detected (NotDetected); Phencyclidine Screen,Urine Not Detected (NotDetected); Tricyclic Antidepressant,Urine Not Detected (NotDetected); Urn Cannabinoid Scrn Not Detected (NotDetected)
[2023-01-10 19:56] VITALS: BP 124/88; PULSE 92; RESP 18
== END 2023-01-10 19:56 | disposition home or self-care (01) ==
LOC: EC 17:48
DX: Z02.83 Encounter for blood-alcohol and blood-drug test (principal); Z88.0 Allergy status to penicillin; Z79.82 Long term (current) use of aspirin
CPT/HCPCS: 80306; 81025; 99283

== ENCOUNTER 2023-09-15 17:00 | Inpatient (IN) | payer OTHER ==
[2023-09-15] MEDS ORDERED: OXYTOCIN 10 UNIT/ML 1 ML VIAL IM PRN (19:38)
[2023-09-15] MEDS ORDERED: TRANEXAMIC 1,000 MG/100ML-NACL 1,000 MG in EMPTY BAG 1 BAG IV PRN (19:38)
[2023-09-15] MEDS ORDERED: TERBUTALINE 1 MG/ML VIAL SQ PRN (19:38)
[2023-09-15] MEDS ORDERED: METHYLERGONOVINE 0.2 MG/ML 1 ML AMP IM PRN (19:38)
[2023-09-15] MEDS ORDERED: CARBOPROST TROMETHAMINE 250 MCG/ML 1 ML AMP IM PRN (19:38)
[2023-09-15] MEDS ORDERED: miSOPROStoL 200 MCG TAB PO PRN (19:38)
[2023-09-15] MEDS ORDERED: OXYTOCIN 30 UNITS/500 ML NS 30 UNIT in SALINE 1 500ML.BAG IV SCH (19:45)
[2023-09-15] MEDS: DINOPROSTONE 10 MG INSERT.ER VAGINAL ONE (19:55)
[2023-09-15 20:15] LABS: Basophils % (A) 0 %; Eosinophils # (A) 0.2 k/uL (0-0.7); Eosinophils % (A) 1 %; HCT 39.8 % (34.0-46.0); HGB 13.5 gm/dL (11.4-16.0); Lymphocytes # (A) 2.4 k/uL (1.0-4.8); Lymphocytes % (A) 22 %; MCH 28.9 pg (25.0-35.0); MCHC 34.1 g/dL (31.0-37.0); MCV 84.9 fL (80.0-100.0); Mean Platelet Volume 9.7; Monocytes # (A) 0.7 k/uL (0-1.0); Monocytes % (A) 6 %; Neutrophils # (A) 7.7 k/uL (1.3-7.7); Neutrophils % (A) 68 %; Platelet Count 238 k/uL (150-450); RBC 4.68 m/uL (3.80-5.40); RDW 14.2 % (11.5-15.5); WBC 11.3 k/uL (3.8-10.6)
[2023-09-16] MEDS: LACTATED RINGERS 1,000 ML IV SCH (05:45)
[2023-09-16] MEDS: OXYTOCIN 30 UNITS/500 ML NS 30 UNIT in SALINE 1 500ML.BAG IV SCH (06:00)
--- NOTE | 2023-09-16 08:41 | P.HPOB ---
History of Present Illness H&P Date: 09/16/23 Chief Complaint: 39+ weeks, elective induction The patient is a 23-year-old 3 para 1-0-1-1 admitted at 39-4/7 weeks as established by 11-week ultrasound. She is admitted for elective induction though she was found to have borderline oligohydramnios in the late third trimester for which she had reassuring weekly testing. Her was otherwise uncomplicated. On labor and delivery, all signs are reassuring with a category 1 heart rate tracing. Group B strep status is negative. Obstetrical history: 3 para 1-0-1-1 with 1 previous term vaginal delivery and 1 early miscarriage. Current statistics are listed in history of present illness. EDC of 09/19/2023 was established by 11-week ultrasound. Laboratory workup demonstrates a blood type of A+ with a negative antibody screen. Rubella status is immune. The remainder of the laboratory workup was within normal limits aside from her Pap showing low-grade changes which will be followed up . Early Glucola was normal as was second trimester Glucola. Group B strep status is negative. Gynecologic history: Unremarkable with no history of any infections to include STDs. Review of Systems Systems is confined to history of present illness. Past Medical History Past Medical History: No Reported History History of Any Multi-Drug Resistant Organisms: None Reported Past Surgical History: No Surgical Hx Reported Past Anesthesia/Blood Transfusion Reactions: No Reported Reaction Past Psychological History: No Psychological Hx Reported Smoking Status: Never smoker Past Alcohol Use History: None Reported Past Drug Use History: None Reported Medications and Allergies Allergies Allergy/AdvReac Type Severity Reaction Status Date / Time Penicillins Allergy Unknown Verified 09/15/23 19:37 Childhood Exam Vital Signs Temp Pulse Resp BP Pulse Ox 09/15/23 19:30 97.7 F 85 16 123/81 97 Intake and Output 09/15/23 09/16/23 09/16/23 22:59 06:59 14:59 Other: # Voids 1 Weight 142.882 kg General, this is a well-developed, moderately obese white female in no acute distress. Her heart has a regular rhythm and rate without murmur. Her lungs are clear to auscultation bilaterally in all lacey. Her abdomen is gravid, moderately obese, nondistended, has normal active bowel sounds, soft, nontender, and without any palpable masses aside from the uterine fundus. Her extremities are without any cyanosis, clubbing, or edema and are nontender to palpation payal aterally. Digital cervical examination demonstrates the cervix to be approximately 2 cm dilated, 40% effaced, with the vertex and presentation at -2 station. Artificial rupture of membranes is carried out demonstrating clear fluid. A scalp electrode is placed on the dependent portion of the scalp in standard fashion as external monitoring is very difficult. Results Result Diagrams: 09/15/23 19:50 Abnormal Lab Results - Last 24 Hours (Table) 09/15/23 Range/Units 19:50 WBC 11.3 H (3.8-10.6) k/uL Assessment and Plan (1) Oligohydramnios Current Visit: Yes Status: Acute Code(s): O41.00X0 - OLIGOHYDRAMNIOS, UNSP TRIMESTER, NOT APPLICABLE OR UNSP SNOMED Code(s): 05873608 (2) Term Current Visit: Yes Status: Acute Code(s): Z34.90 - ENCNTR FOR SUPRVSN OF NOR MAL , UNSP, UNSP TRIMESTER SNOMED Code(s): 47623181 Plan: Patient was admitted last evening for Cervidil cervical ripening which has been successful in making her cervix more favorable. Pitocin augmentation was started this morning and she has undergone artificial rupture of membranes. She will have close maternal and surveillance and expectant management will be practiced. She is a good candidate for either IV, epidural, or nitrous analgesia, whichever she may choose.
[2023-09-16] MEDS: NALBUPHINE 10 MG/ML (10 ML MDV) IV PRN (11:57)
[2023-09-16] MEDS ORDERED: SODIUM CHLORIDE 0.9% 250 ML BAG ONE (12:02)
[2023-09-16] MEDS ORDERED: fentaNYL (PF) 50 MCG/ML 5 ML AMP ONE (12:02)
[2023-09-16] MEDS ORDERED: ROPIVACAINE 5 MG/ML 30 ML VIAL ONE (12:02)
[2023-09-16] MEDS ORDERED: HYDROcodone/APAP 5-325MG 1 EACH TAB PO PRN (22:08)
[2023-09-16] MEDS ORDERED: HYDROcodone/APAP 7.5-325MG 1 EACH TAB PO PRN (22:08)
[2023-09-16] MEDS ORDERED: HYDROCORTISONE 2.5% RECTAL CREAM 30 GM TUBE RECTAL PRN (22:08)
[2023-09-16] MEDS ORDERED: ACETAMINOPHEN TAB 325 MG TAB PO PRN (22:08)
[2023-09-16] MEDS ORDERED: LANOLIN CREAM 1 GM TUBE TOPICAL PRN (22:08)
[2023-09-16] MEDS ORDERED: diphenhydrAMINE 50 MG/ML 1 ML VIAL IVP PRN ×2 (22:08)
[2023-09-16] MEDS ORDERED: SIMETHICONE 80 MG CHEWABLE PO PRN (22:08)
[2023-09-16] MEDS ORDERED: diphenhydrAMINE 50 MG CAP PO PRN (22:08)
[2023-09-16] MEDS ORDERED: IBUPROFEN 600 MG TAB PO PRN (22:08)
[2023-09-16] MEDS ORDERED: diphenhydrAMINE 25 MG CAP PO PRN (22:08)
[2023-09-16] MEDS ORDERED: ZOLPIDEM 5 MG TAB PO PRN (22:08)
--- NOTE | 2023-09-16 22:11 | P.PROBDLV ---
Vaginal Delivery Note - . Vaginal Delivery Note: The patient is a 23-year-old 3 para 1-0-1-1 admitted at 39-4/7 weeks for elective induction. As her cervix was somewhat unfavorable, she was admitted the night prior for Cervidil cervical ripening. Overnight she made enough progress to allow for artificial rupture of membranes demonstrating clear fluid. Pitocin augmentation was started. She made progress to the active phase of labor at which time an epidural catheter was placed for analgesia. She had made relatively slow progress through the active phase of labor to approximately 7 to 8 cm when she began to make more rapid progress and descent. She ultimately reached anterior lip and we were able to reduce the lip over the cervix while she pushed and she pushed thereafter over the course of approximately 2-3 contractions to a normal spontaneous vaginal delivery of a viable 9 pound 2 ounce baby boy with Apgars of 9 at 1 minute and 9 at 5 minutes delivered in the direct occiput anterior position. The placenta was delivered spontaneously, intact, and grossly normal with a grossly normal three-vessel cord inserted approximately 4 to 5 cm from the margin of the placental disc. There was a small second-degree midline perineal laceration over the site of a previous laceration which was repaired in standard fashion with 3-0 chromic catgut without difficulty. Estimated blood loss for the case was approximately 150 cc. There were no complications. All sponge, instrument, and needle counts were correct. Both mother and are resting comfortably in recovery.
[2023-09-16] MEDS ORDERED: OXYTOCIN 30 UNITS/500 ML NS 30 UNIT in SALINE 1 500ML.BAG IV SCH (22:15)
[2023-09-16] MEDS: LIDOCAINE 0.5% (PF) 5 MG/ML (50 ML SDV) SQ PRN (22:53)
[2023-09-16] MEDS: BENZOCAINE/MENTHOL SPRAY 1 GM/SPRAY AEROSOL TOPICAL PRN (22:54)
[2023-09-17] MEDS: SENNOSIDES-DOCUSATE SODIUM 1 EACH TAB PO SCH (08:40)
--- NOTE | 2023-09-17 08:47 | P.DS ---
Providers Date of admission: 09/15/23 19:08 Expected date of discharge: 09/17/23 Attending physician: Adolfo Castillo Primary care physician: Stated None - Discharge Diagnosis(es) (1) Oligohydramnios Current Visit: Yes Status: Acute (2) Term Current Visit: Yes Status: Acute Hospital Course: The patient is a 23-year-old 3 para 1-0-1-1 admitted at 39-4/7 weeks by good dating parameters. She was admitted the night prior for Cervidil cervical ripening followed by Pitocin augmentation. Her was essentially uncomplicated though she was found with late third trimester borderline oligohydramnios and had reassuring testing. Group B strep status was negative. After cervical ripening, she was started on Pitocin augmentation and was able to undergo artificial rupture of membranes for clear fluid. She had an epidural catheter placed during the course of labor and progressed slowly until approximately 8 cm at which time there was likely head rotation and descent and she progressed quickly to complete. She then pushed to a normal spontaneous vaginal delivery of a viable 9 pound 2 ounce baby boy with Apgars of 9 at 1 minute and 9 at 5 minutes. Her course was unremarkable with vital signs remaining stable and her temperature was afebrile throughout. She was deemed stable for discharge on day #1 and was discharged home to follow-up in the office in 6 weeks time routinely. Discharge instructions included calling for any significantly increased bleeding or foul-smelling lochia, significantly increased fever or abdominal pain, perineal complaints, breast complaints, or anything else that concerned her. She was additionally instructed to have nothing in the vagina for at least 6 weeks time to include intercourse. She understood her instructions and agrees to follow-up as noted above. Discharge medications included continued vitamins as she has opted to breast-feed. She was otherwise to use [id number] analgesic pain medications as needed. Internal blood type is a positive and rubella status is immune. Procedures: #1. Cervidil cervical ripening #2. Pitocin augmentation #3. Artificial rupture of membranes #4. Epidural analgesia #5. Normal spontaneous vaginal delivery #6. Repair of small second-degree perineal laceration Patient Condition at Discharge: Stable Plan - Discharge Summary Follow up Appointment(s)/Referral(s): Adolfo Castillo MD [STAFF PHYSICIAN] - 6 Weeks Discharge Disposition: HOME SELF-CARE
[2023-09-17 16:51] VITALS: RESP 17
[2023-09-17 21:16] VITALS: BP 127/85; PULSE 92; TEMP 98.7
== END 2023-09-17 22:50 | disposition home or self-care (01) | DRG 560 ==
LOC: 4FBP 19:08
PROVIDERS: ADMIT Obstetrics & Gynecology; ATTEND Obstetrics & Gynecology
PROC: 10E0XZZ Delivery of Products of Conception, External Approach (ICD-10-PCS; principal; 2023-09-16)
PROC: 3E0P7VZ Introduction of Hormone into Female Reproductive, Via Natural or Artificial Opening (ICD-10-PCS; 2023-09-16)
PROC: 10907ZC Drainage of Amniotic Fluid, Therapeutic from Products of Conception, Via Natural or Artificial Opening (ICD-10-PCS; 2023-09-16)
PROC: 3E0DXGC Introduction of Other Therapeutic Substance into Mouth and Pharynx, External Approach (ICD-10-PCS; 2023-09-16)
PROC: 3E033VJ Introduction of Other Hormone into Peripheral Vein, Percutaneous Approach (ICD-10-PCS; 2023-09-16)
PROC: 0KQM0ZZ Repair Perineum Muscle, Open Approach (ICD-10-PCS; 2023-09-16)
DX: O41.03X0 Oligohydramnios, third trimester, not applicable or unspecified (principal); Z37.0 Single live birth; O70.1 Second degree perineal laceration during delivery; Z3A.39 39 weeks gestation of pregnancy; Z87.59 Personal history of other complications of pregnancy, childbirth and the puerperium; Z88.0 Allergy status to penicillin
CPT/HCPCS: 85025; 86850; 86900; 86901

== ENCOUNTER 2023-11-26 12:18 | Emergency (ER) | payer OTHER ==
[2023-11-26 12:21] VITALS: RESP 18
--- NOTE | 2023-11-26 12:45 | ED ---
Back Pain HPI - General Chief Complaint: Back Pain/Injury Stated Complaint: Pain in back Time Seen by Provider: 11/26/23 12:28 Source: patient, RN notes reviewed Limitations: no limitations - History of Present Illness Initial Comments: 23-year-old female presenting with right rib pain x 1 day. States she was at work yesterday when she was pinned between a desk and a High[employer]Low rosa for approximately 10 seconds. States she is having pain in the right middle back extending into the flank. She was seen at a clinic earlier who suspected a rib fracture and sent her to the ER for an x-ray. States she has pain on the right side with deep inspiration. Denies chest pain, abdominal pain, nausea, vomiting, urinary symptoms. She is able to ambulate well. Denies head injury. Denies other injuries. - Related Data Home Medications Medication Instructions Recorded Confirmed norethindrone-e.estradioL-iron 1 tab PO DAILY 11/26/23 11/26/23 [Junel Fe 1 mg-20 Mcg Tablet] Allergies Allergy/AdvReac Type Severity Reaction Status Date / Time Penicillins Allergy Unknown Verified 11/26/23 13:17 Childhood Review of Systems ROS Statement: Those systems with pertinent positive or pertinent negative responses have been documented in the HPI. ROS Other: All systems not noted in ROS Statement are negative. Past Medical History Past Medical History: No Reported History History of Any Multi-Drug Resistant Organisms: None Reported Past Surgical History: No Surgical Hx Reported Past Anesthesia/Blood Transfusion Reactions: No Reported Reaction Past Psychological History: No Psychological Hx Reported Smoking Status: Never smoker Past Alcohol Use History: None Reported Past Drug Use History: None Reported General Exam Limitations: no limitations General appearance: alert, in no apparent distress Head exam: Present: atraumatic, normocephalic, normal inspection Eye exam: Present: normal appearance, PERRL, EOMI. Absent: scleral icterus, conjunctival injection, periorbital swelling ENT exam: Present: normal exam, mucous membranes moist Neck exam: Present: normal inspection. Absent: tenderness, meningismus, lymphadenopathy Respiratory exam: Present: normal lung sounds bilaterally, other (No contusions present. Reproducible pain along the right lateral ribs). Absent: respiratory distress, wheezes, rales, rhonchi, stridor Cardiovascular Exam: Present: regular rate, normal rhythm, normal heart sounds. Absent: systolic murmur, diastolic murmur, rubs, gallop, clicks GI/Abdominal exam: Present: soft, normal bowel sounds. Absent: distended, tenderness, guarding, rebound, rigid Extremities exam: Present: normal inspection, full ROM, normal capillary refill. Absent: tenderness, pedal edema, joint swelling, calf tenderness Back exam: Present: normal inspection, full ROM. Absent: tenderness (No point tenderness.), CVA tenderness (R), CVA tenderness (L) Neurological exam: Present: alert, oriented X3, CN II-XII intact Psychiatric exam: Present: normal affect, normal mood Skin exam: Present: warm, dry, intact, normal color. Absent: rash Course Vital Signs 11/26/23 11/26/23 12:20 13:35 Temperature 97.8 F 98.1 F Pulse Rate 68 72 Respiratory 18 18 Rate Blood Pressure 148/96 136/92 O2 Sat by Pulse 100 99 Oximetry Medical Decision Making - Medical Decision Making Was pt. sent in by a medical professional or institution (, PA, PHARMACIST'S AIDE, urgent care, hospital, or care home...) When possible be specific @ -No Did you speak to anyone other than the patient for history (EMS, parent, family, police, friend...)? What history was obtained from this source @ -No Did you review nursing and triage notes (agree or disagree)? Why? @ -I reviewed and agree with nursing and triage notes Were old charts reviewed (outside hosp., previous admission, EMS record, old EKG, old radiological studies, urgent care reports/EKG's, care home records)? Report findings @ -Reviewed urgent care note from this morning Differential Diagnosis (chest pain, altered mental status, abdominal pain women, abdominal pain men, vaginal bleeding, weakness, fever, dyspnea, syncope, headache, dizziness, GI bleed, back pain, seizure, CVA, palpatations, mental health, musculoskeletal)? @ -Differential Musculoskeletal Muscular strain, contusion, ligament sprain, fracture, arthritis, septic arthritis, bursitis, cellulitis, muscle spasm, nerve compression, DVT, arterial occlusion, herpes zoster, electrolyte abnormality, tumor.... This is not meant to be in all inclusive list EKG interpreted by me (3pts min.). @ -None X-rays interpreted by me (1pt min.). @ -X-ray of right ribs with PA view of chest reveals no acute osseous pathology. CT interpreted by me (1pt min.). @ -None done U/S interpreted by me (1pt. min.). @ -None done What testing was considered but not performed or refused? (CT, X-rays, U/S, labs)? Why? @ -None What meds were considered but not given or refused? Why? @ -Patient declined any pain medication at this time. Did you discuss the management of the patient with other professionals (professionals i.e. , PA, PHARMACIST'S AIDE, lab, RT, psych nurse, hospice social worker, wine steward/stewardess, teacher, ground defence officer, caser in)? Give summary @ -No Was smoking cessation discussed for >3mins.? @ -No Was critical care preformed (if so, how long)? @ -No Were there social determinants of health that impacted care today? How? (Homelessness, low income, unemployed, alcoholism, drug addiction, transportation, low edu. Level, literacy, decrease access to med. care, [facility], rehab)? @ -No Was there de-escalation of care discussed even if they declined (Discuss DNR or withdrawal of care, Hospice)? DNR status @ -No What co-morbidities impacted this encounter? (DM, HTN, Smoking, COPD, CAD, Cancer, CVA, ARF, Chemo, Hep., AIDS, mental health diagnosis, sleep apnea, morbid obesity)? @ -None Was patient admitted / discharged? Hospital course, mention meds given and route, prescriptions, significant lab abnormalities, going to OR and other per tinent info. @ -Patient was discharged. Patient was seen and evaluated for right rib pain status post injury 1 day ago. Patient's vital signs are stable. Patient is neurovascularly intact. Physical examination is significant for reproducible right lateral rib pain. Patient is ambulating well. Abdomen is soft and nontender. Patient declined pain medication at this time. X-ray of right ribs and PA chest reveals no acute process. Discussed with patient diagnosis of right rib strain. Strict return/alarm symptoms discussed with patient in detail and she shows understanding and agrees with plan. Supportive care discussed. Case discussed with my attending Dr. Martinez. Patient discharged in stable condition Undiagnosed new problem with uncertain prognosis? @ -No Drug Therapy requiring intensive monitoring for toxicity (Heparin, Nitro, Insulin, Cardizem)? @ -No Were any procedures done? @ -No Diagnosis/symptom? @ -Right rib strain Acute, or Chronic, or Acute on Chronic? @ -Acute Uncomplicated (without systemic symptoms) or Complicated (systemic symptoms)? @ -Uncomplicated Side effects of treatment? @ -No Exacerbation, Progression, or Severe Exacerbation? @ -No Poses a threat to life or bodily function? How? (Chest pain, USA, CA, pneumonia, PE, COPD, DKA, ARF, appy, cholecystitis, CVA, Diverticulitis, Homicidal, Suicidal, threat to staff... and all critical care pts) @ -No Disposition Clinical Impression: Rib pain on right side Disposition: HOME SELF-CARE Condition: Stable Instructions (If sedation given, give patient instructions): Muscle Strain (ED) Additional Instructions: Use ice on area as needed. Take ibuprofen or Tylenol for pain as needed. Please return to the Emergency Department if symptoms worsen or any other concerns. Is patient prescribed a controlled substance at d/c from ED?: No Referrals: Amy Nguyễn, ZOILA [REFERRING] - 1-2 days Time of Disposition: 13:32
--- NOTE | 2023-11-26 13:19 | XR ---
EXAMINATION TYPE: XR ribs RT w pa chest xray DATE OF EXAM: 11/26/2023 1:11 PM CLINICAL INDICATION:Female, 23 years old with history of right rib pain; [facility] COMPARISON: None TECHNIQUE: XR ribs RT w pa chest xray; Frontal and oblique views of the ribs with frontal chest radio graph. FINDINGS: The ribs have a normal appearance. No evidence of fracture. Overall, the lungs are clear. The cardiac silhouette is normal in size. The remaining osseous structures are intact. IMPRESSION: No acute osseous pathology.
[2023-11-26 13:37] VITALS: BP 136/92; PULSE 72; TEMP 98.1
== END 2023-11-26 13:37 | disposition home or self-care (01) ==
LOC: EC 12:18
DX: S23.41XA Sprain of ribs, initial encounter (principal); Z88.0 Allergy status to penicillin; X58.XXXA Exposure to other specified factors, initial encounter
CPT/HCPCS: 99283